=== PATIENT | female | born 1965 | race Caucasian/White ===

== ENCOUNTER → 2017-05-29 13:00 | Outpatient (CLI) | payer OTHER, SELFPAY ==
--- NOTE | 2017-05-29 13:00 | HPBI_ITS ---
MAMMOGRAPHY - BILATERAL DIAGNOSTIC REASON FOR EXAM: Female, 51 years old. Left breast pain. PERTINENT HISTORY: TECHNIQUE: Digital bilateral breast bambi (3D mammographic acquisition) in the CC and MLO projections. 2-D mediolateral oblique (MLO) and craniocaudad (CC) views of both breasts were obtained. CAD: Full Field Digital Mammography with Computer Added Detection was performed. COMPARISON: Comparison is made with prior outside examination dated June 14, 2014. FINDINGS: Breast Composition: The breasts are extremely dense, which lowers the sensitivity of mammography. There are no dominant masses or suspicious calcifications. There is retraction of the left areolar complex with overlying skin thickening. Correlation with ultrasound is recommended. No other significant abnormalities are identified. BI/DIAG MAMM W/CAD, BILAT IMPRESSION: Retraction of the right areolar complex. Left breast pain. Correlation with ultrasound is recommended. ASSESSMENT CATEGORY: BIRADS Category 0: Incomplete. Need additional imaging evaluation. A letter regarding these results will be sent to the patient by the facility within 30 days. Approximately 10% of breast cancers are not detected by mammography. A normal mammogram should not delay biopsy of a clinically suspicious abnormality. Electronically Signed: Chang Nicole MD at 14:06 EDT Tel [phone], Service support ,
--- NOTE | 2017-05-29 13:46 | US_ITS ---
STUDY: ULTRASOUND BREAST - RIGHT REASON FOR EXAM: Female, 51 years old. Left breast pain. TECHNIQUE: Axial and longitudinal images of the RIGHT breast were performed with a high resolution ultrasound transducer. COMPARISON: Comparison is made with prior mammogram done earlier today. FINDINGS: RIGHT Breast: There is a 6 mm x 7 mm x 3 mm cyst at the 9:00 position breast at 2 cm from nipple. This also evidence of a 3 mm x 2 mm x 3 mm cyst in the retroareolar region of the breast mild degree of dilated retroareolar ducts. IMPRESSION: 2 small cysts are seen. Mild retroareolar ductal dilatation. ASSESSMENT CATEGORY: BIRADS Category 2: Benign. A letter regarding these results will be sent to the patient by the facility within 30 days. Electronically Signed: Chang Nicole MD at 9:01 EDT Tel [phone], Service support , STUDY: ULTRASOUND BREAST - LEFT REASON FOR EXAM: Female, 51 years old. Pain in the left breast. TECHNIQUE: Axial and longitudinal images of the LEFT breast were performed with a high resolution ultrasound transducer. COMPARISON: Comparison is made with prior mammogram done earlier today. FINDINGS: LEFT Breast: There is a 6 mm x 4 mm x 3 mm cyst at the 12:00 position breast at 3 cm from the nipple. US/Breast Limited Unilateral IMPRESSION: 6 mm x 4 mm x 3 mm cyst at the 12:00 position of the breast at 3 cm from the nipple. ASSESSMENT CATEGORY: BIRADS Category 2: Benign. A letter regarding these results will be sent to the patient by the facility within 30 days. Electronically Signed: Chang Nicole MD at 9:02 EDT Tel [phone], Service support ,
== END ==
PROVIDERS: Family Provider Family Medicine; PCP Family Medicine; Visit Provider Nurse Practitioner Women's Health
DX: N60.02 Solitary cyst of left breast (principal); N64.4 Mastodynia; R92.8 Other abnormal and inconclusive findings on diagnostic imaging of breast
CPT/HCPCS: 76642; 77062; 77066; G0279

== ENCOUNTER 2018-03-28 05:32 | Day surgery (SDC) | payer OTHER, SELFPAY ==
[2018-03-28] VITALS (9 sets, daily range): BP systolic 90–129; BP diastolic 55–83; PULSE 57–71; RESP 14–18; TEMP 36.4–36.8; O2SAT 97–100; BMI 20.6
--- NOTE | 2018-03-28 06:12 | PCM.HP.STD ---
Problem List (1) Screening for intestinal cancer Status: Acute History of Present Illness Date of Admission: 03/28/18 The patient is a 52 year old F who presents for screening colonoscopy. She has never had a previous colonoscopy. She denies bright red blood per rectum melena. No abdominal pain. No change in bowel habits. No diarrhea or constipation. There is no family history of colon polyps or colon cancer. She otherwise enjoys a very good quality of life and health Past Medical History Allergies penicillin G Allergy (Mild, Verified 03/28/18 05:52) Unknown Home Medications: Ambulatory Orders Medication Instructions Recorded Biotin 10,000 mcg PO DAILY 03/25/18 Calcium (Elemental) [Os-Les 500] 500 mg PO DAILY@0800 03/25/18 Coconut Oil 100 mg PO DAILY 03/25/18 Iron Carbonyl [Feosol] 45 mg PO DAILYCM 03/25/18 Multivit with Calcium,Iron,Min 1 each PO DAILY 03/25/18 [Multiple Vitamins For Women] Surgical History: Surgical History (Last Reviewed 01/08/18 @ 12:28 by Sylwia Watkins) H/O tubal ligation Z98.51 Smoking Status: Never smoker Tobacco Use: Non-smoker Review of Systems Constitutional: Denies: Anorexia HEENT: Denies: Difficulty Swallowing Cardiovascular: Denies: Chest Pain Respiratory: Denies: Cough Gastrointestinal: Denies: Abdominal Pain, Constipation, Diarrhea Neurological: Denies: Balance problems Endocrine: Denies: Change in Body Habitus VTE Information - Inpt Only VTE Present on Admission: No Patient Problems: Active and Suspected Problems (Last Reviewed 01/08/18 @ 12:28 by Sylwia Watkins) Screening for intestinal cancer (Acute) - Physical Exam General: Alert, Oriented x3, Cooperative, No apparent distress, Well developed HEENT: Atraumatic Oral: Moist Mucosa Neck: Supple Lungs: Clear to auscultation Cardiovascular: Regular rate, Regular Rhythm Abdomen: Bowel Sounds Present, Soft, Non Tender Extremities: No Calf Tenderness Neurological: Cranial nerves II-XII grossly intact Psych/Mental Status: Normal Affect Vital Signs Temp Pulse Resp BP Pulse Ox 97.8 F 57 L 18 117/63 100 03/28/18 05:52 03/28/18 05:52 03/28/18 05:52 03/28/18 05:52 03/28/18 05:52 Oxygen Delivery Method Room Air Weight: 128 lb Body Mass Index (BMI) 20.6 Assessment/Plan All Active Problems (Last Reviewed 01/08/18 @ 12:28 by Sylwia Watkins) Screening for intestinal cancer (Acute) I am recommending the patient is screening colonoscopy with possible biopsy or polypectomy as indicated. She is aware of the technique, benefits, risks, alternatives. She has had an opportunity to ask and have questions answered. She presents via our open access program. We will proceed as noted. Salvador Renner M.D., F.A.C.S.
--- NOTE | 2018-03-28 06:47 | OP.ENDO_ITS ---
Patient Name: Morelia Cole Procedure Date: 03/28/2018 6:09 AM Date of : 1965 Age: 52 Procedure: Colonoscopy Indications: Screening for colorectal malignant neoplasm Providers: Salvador Renner MD Referring MD: Salvador Renner MD Medicines: Midazolam 3 mg IV, Meperidine 100 mg IV Patient Profile: Last Colonoscopy: none. The patient's first colonoscopy is today. Complications: No immediate complications. Procedure: Pre-Anesthesia Assessment: - Prior to the procedure, a History and Physical was performed, and patient medications and allergies were reviewed. The patient's tolerance of previous anesthesia was also reviewed. The risks and benefits of the procedure and the sedation options and risks were discussed with the patient. All questions were answered, and informed consent was obtained. Prior Anticoagulants: The patient has taken no previous anticoagulant or antiplatelet agents. ASA Grade Assessment: I - A normal, healthy patient. After reviewing the risks and benefits, the patient was deemed in satisfactory condition to undergo the procedure. After I obtained informed consent, the scope was passed under direct vision. Throughout the procedure, the patient's blood pressure, pulse, and oxygen saturations were monitored continuously. The colonoscope was introduced through the anus and advanced to the cecum, identified by appendiceal orifice and ileocecal valve. The colonoscopy was performed without difficulty. The patient tolerated the procedure well. The quality of the bowel preparation was excellent. The ileocecal valve was photographed. Moderate Sedation: Moderate (conscious) sedation was personally administered by the endoscopist. The following parameters were monitored: oxygen saturation, heart rate, blood pressure, and response to care. Total physician intraservice time was 15 minutes. Scope In: 6:29:01 AM Scope Withdrawal Time 0 hours 8 minutes 50 seconds Scope Out: 6:44:18 AM Total Procedure Duration Time 0 hours 15 minutes 17 seconds Findings: Hemorrhoids were found on perianal exam. A few diverticula were found in the sigmoid colon. There was no evidence of diverticular bleeding. The exam was otherwise without abnormality. Impression: - Hemorrhoids found on perianal exam. - Few scattered diverticula in the sigmoid colon. - The examination was otherwise normal. - No specimens collected. Recommendation: - Discharge patient to home. - Resume previous diet. - Continue present medications. - Repeat colonoscopy in 10 years for screening purposes. Procedure Code(s): --- Professional --- 63717, Colonoscopy, flexible; diagnostic, including collection of specimen(s) by brushing or washing, when performed (separate procedure) 00619, 59, Moderate sedation services provided by the same physician or other qualified health daycare worker performing the diagnostic or therapeutic service that the sedation supports, requiring the presence of an independent trained observer to assist in the monitoring of the patient's level of consciousness and physiological status; initial 15 minutes of intraservice time, patient age 5 years or older Diagnosis Code(s): --- Professional --- Z12.11, Encounter for screening for malignant neoplasm of colon K64.9, Unspecified hemorrhoids K57.30, Diverticulosis of large intestine without perforation or abscess without bleeding CPT copyright 2017 [employer]. All rights reserved. The codes documented in this report are preliminary and upon certified coder review may be revised to meet current compliance requirements. Salvador Renner MD 03/28/2018 6:47:30 AM This report has been signed electronically. Number of Addenda: 0 Note Initiated On: 03/28/2018 6:09 AM
== END 2018-03-28 07:35 | disposition home or self-care (01) ==
LOC: EN 05:32 → AC 05:36
PROVIDERS: Family Provider Family Medicine; PCP Family Medicine; Referring Provider Surgery; Visit Provider Surgery
PROC: 0DJD8ZZ Inspection of Lower Intestinal Tract, Via Natural or Artificial Opening Endoscopic (ICD-10-PCS; CPT 45378; principal; 2018-03-28 06:25)
DX: Z12.11 Encounter for screening for malignant neoplasm of colon (principal); K57.30 Diverticulosis of large intestine without perforation or abscess without bleeding; K64.9 Unspecified hemorrhoids
CPT/HCPCS: 45378; 99152; 99153; J7120